=== PATIENT | male | born 1965 | race African-American/Black ===

== ENCOUNTER 2017-01-19 15:57 | Emergency (ER) | payer BC ==
[~2017-01-19] VITALS: Ht 175.3 cm; Wt 94.3 kg
[2017-01-19 16:33] LABS: HEMATOCRIT 44.9 % (38.0-50.0); MCH 29.7 PG (29.0-34.0); MCHC 33.9 G/DL (30.0-36.0); MCV 87.7 FL (86-99); MEAN PLAT.VOLUME 9.4 uM^3 (9.0-12.4); PLATELET COUNT 209 K/uL (156-360); RBC DIS.WIDTH-CV 13.4 % (11.8-14.6); RBC DIS.WIDTH-SD 43.6 % (39-53); RED BLOOD COUNT 5.12 M/uL (4.00-5.50); WHITE BLOOD COUNT 5.9 K/uL (4.1-10.2)
[2017-01-19 16:42] LABS: CHLORIDE 108 mEq/L (99-109); SODIUM 140 mEq/L (136-147)
[2017-01-19 16:43] LABS: GLUCOSE 90 mg/dL (70-99)
[2017-01-19 16:45] LABS: ANION GAP 8 MEQ/L (2-14)
[2017-01-19 16:48] LABS: GFR ESTIMATE (CALCULATED) > 59 mL/min/; UREA NITROGEN (BUN) 12 mg/dL (9-23)
[2017-01-19 16:53] LABS: TROP-I INTERPRETATION NEGATIVE; TROPONIN-I < 0.01 ng/mL (0.0-0.30)
[2017-01-19 18:12] VITALS: BP 146/102
== END 2017-01-19 21:26 | disposition left against medical advice (07) ==
LOC: EME 15:57
DX: R07.9 Chest pain, unspecified (principal); M79.601 Pain in right arm
CPT/HCPCS: 71020; 80048; 84484; 85027; 93005; 99281; 99284